=== PATIENT | female | born 1950 | race Caucasian/White ===

== ENCOUNTER 2018-04-29 06:03 | Inpatient (IN) | payer MEDICARE, OTHER ==
[2018-04-29] MEDS: ALBUTEROL 0.083% (NEB) 2.5 MG/3 ML AMP NEB (06:30)
[2018-04-29] MEDS: IPRATROPIUM (NEB) 0.5 MG/2.5 ML AMP NEB (06:30)
[2018-04-29 08:17] LABS: ADD MAN DIFF? NO
[2018-04-29 08:19] LABS: BASOPHIL # 0.1 10^3/ul (0.0-0.1); BASOPHILS % 0.3 % (0.0-2.0); HEMATOCRIT 43.4 % (37.0-47.0); HEMOGLOBIN 14.3 g/dl (12.0-16.0); LYMPHOCYTES % 5.2 % (15.0-51.0); MEAN CORPUSCULAR HEMOGLOBIN 30.8 pg (29.0-33.0); MEAN CORPUSCULAR HGB CONC 32.9 g/dl (32.0-37.0); MEAN CORPUSCULAR VOLUME 93.3 fl (82.0-101.0); MEAN PLATELET VOLUME 10.1 fl (7.4-10.4); MONOCYTE # 0.5 10^3/ul (0.3-0.9); MONOCYTES % 2.5 % (0.0-11.0); NEUTROPHIL # 17.4 10^3/ul (1.6-7.5); NEUTROPHILS % 91.5 % (39.0-77.0); PLATELET COUNT 305 10^3/UL (140-415); RED BLOOD COUNT 4.65 10^6/ul (4.20-5.40); RED CELL DISTRIBUTION WIDTH 12.7 % (11.5-14.5)
[2018-04-29] MEDS: LABETALOL HCL 20MG INJ IV ×2 (08:20→12:45)
[2018-04-29] MEDS: ONDANSETRON 4 MG INJ IV (08:21)
[2018-04-29] MEDS: METHYLPREDNISOLONE 125 MG INJ IV (08:21)
[2018-04-29] MEDS: FAMOTIDINE 20 MG INJ IV (08:22)
[2018-04-29] MEDS: morphine 2 MG INJ IV (08:22)
[2018-04-29] MEDS: SODIUM CHLORIDE 0.9% 1L BAG IV* (08:23)
[2018-04-29 08:38] LABS: INR 0.95; PROTIME 12.8 Sec (11.9-14.9)
[2018-04-29 08:39] LABS: PARTIAL THROMBOPLASTIN TIME 26.9 Sec (23.0-35.0)
[2018-04-29 08:44] LABS: ALANINE AMINOTRANSFERASE 17 IU/L (13-69); ALBUMIN 4.7 g/dl (3.3-4.9); ALBUMIN/GLOBULIN RATIO 2.04; ALKALINE PHOSPHATASE 73 IU/L (42-121); AMYLASE 68 U/L (11-123); ANION GAP 13 (5-13); ASPARTATE AMINO TRANSFERASE 27 IU/L (15-46); BILIRUBIN,INDIRECT 0.1 mg/dl (0-1.1); BILIRUBIN,TOTAL 0.1 mg/dl (0.2-1.3); BLOOD UREA NITROGEN 27 mg/dl (7-20); CALCIUM 9.4 mg/dl (8.4-10.2); CARBON DIOXIDE 29 mmol/L (21-31); CHLORIDE 103 mmol/L (97-110); CREATININE 0.97 mg/dl (0.44-1.00); Estimated GFR 57 mL/min (>60); GLUCOSE 145 mg/dl (70-220); LIPASE 26 U/L (23-300); POTASSIUM 4.5 mmol/L (3.5-5.1); SODIUM 145 mmol/L (135-144)
[2018-04-29 08:46] LABS: ETHANOL < 10.0 mg/dl
[2018-04-29 08:56] LABS: TROPONIN-I 0.014 ng/ml (0.000-0.120)
[2018-04-29 09:01] LABS: FREE THYROXINE INDEX (Calc) 2.63 ug/ml (0.65-3.89); T3 UPTAKE 32.9 % (23.5-40.5)
[2018-04-29 10:10] LABS: ADD UMIC YES; UR ASCORBIC ACID NEGATIVE (NEGATIVE); UR BACTERIA FEW /HPF (NONE SEEN); UR BILIRUBIN (Dip) NEGATIVE (NEGATIVE); UR BLOOD (Dip) NEGATIVE (NEGATIVE); UR CLARITY SLIGHTLY CLOUDY (CLEAR); UR COLOR YELLOW (YELLOW); UR GLUCOSE (Dip) NEGATIVE (NEGATIVE); UR KETONES (Dip) NEGATIVE (NEGATIVE); UR LEUKOCYTE ESTERASE (Dip) NEGATIVE Leu/ul (NEGATIVE); UR NITRITE (Dip) POSITIVE (NEGATIVE); UR RBC 0 /HPF (0-5); UR TOTAL PROTEIN (Dip) 2+ mg/dl (NEGATIVE); UR UROBILINOGEN (Dip) NEGATIVE (NEGATIVE); UR WBC 1 /HPF (0-5)
[2018-04-29] MEDS: CEFEPIME 2GM/50 ML (PMX) 50 ML IVPB (10:13)
[2018-04-29] MEDS: hydrALAzine 20 MG INJ IV ×2 (10:18→20:22)
[2018-04-29] MEDS: VANCOMYCIN 1 GM (PMX) 250 ML IVPB (10:41)
[2018-04-29] MEDS ORDERED: ACETAMINOPHEN 325 MG TAB PO (11:00)
[2018-04-29] MEDS ORDERED: ONDANSETRON 4 MG INJ IV (11:00)
[2018-04-29] MEDS: IOHEXOL 14.3 MG(I)/ML (ADULT) BTL PO (12:56)
[2018-04-29 12:59] LABS: LACTIC ACID 2.6 mmol/L (0.5-2.0)
[2018-04-29] MEDS: SOD CHLORIDE 0.9% 1,000 ML IV ×2 (13:20→18:05)
[2018-04-29] MEDS: SOD CHLORIDE 0.9% 100 ML (14:57)
[2018-04-29] MEDS: IOHEXOL 300MG/ML 150 ML BTL (14:57)
[2018-04-29] MEDS ORDERED: NACL 0.9% 3 ML SYG IV (15:00)
[2018-04-29] MEDS ORDERED: ALBUTEROL/IPRATROPIUM (NEB) 3 ML AMP HHN (15:00)
[2018-04-29] MEDS: AMLODIPINE 2.5 MG TAB PO (18:13)
[2018-04-29] MEDS: CIPROFLOXACIN 400MG/D5W 200 ML IVPB (20:17)
[2018-04-29] MEDS: metroNIDAZOLE 500 MG/NS (PMX) 100 ML IVPB (21:57)
[2018-04-30] MEDS: ONDANSETRON 4 MG INJ IV (00:07)
[2018-04-30] MEDS: metroNIDAZOLE 500 MG/NS (PMX) 100 ML IVPB ×3 (05:16→22:28)
[2018-04-30] MEDS: PANTOPRAZOLE (EC) 40 MG TAB PO (05:16)
[2018-04-30] MEDS: SOD CHLORIDE 0.9% 1,000 ML IV (05:16)
[2018-04-30] MEDS: hydrALAzine 20 MG INJ IV ×2 (05:24→23:26)
[2018-04-30 05:35] LABS: WHITE BLOOD COUNT 9.5 10^3/ul (4.8-10.8)
[2018-04-30 05:35] LABS: HEMATOCRIT 42.6 % (37.0-47.0); HEMOGLOBIN 13.6 g/dl (12.0-16.0); MEAN CORPUSCULAR HEMOGLOBIN 29.9 pg (29.0-33.0); MEAN CORPUSCULAR HGB CONC 31.9 g/dl (32.0-37.0); MEAN CORPUSCULAR VOLUME 93.6 fl (82.0-101.0); MEAN PLATELET VOLUME 10.2 fl (7.4-10.4); PLATELET COUNT 291 10^3/UL (140-415); RED BLOOD COUNT 4.55 10^6/ul (4.20-5.40); RED CELL DISTRIBUTION WIDTH 12.7 % (11.5-14.5)
[2018-04-30 05:41] LABS: ADD MAN DIFF? YES; POSITIVE DIFF @See below
[2018-04-30 06:10] LABS: HEMOGLOBIN A1C 5.3 % (0-5.9)
[2018-04-30 06:15] LABS: ALANINE AMINOTRANSFERASE 28 IU/L (13-69); ALBUMIN 3.1 g/dl (3.3-4.9); ALBUMIN/GLOBULIN RATIO 1.19; ALKALINE PHOSPHATASE 63 IU/L (42-121); ANION GAP 10 (5-13); ASPARTATE AMINO TRANSFERASE 29 IU/L (15-46); BILIRUBIN,INDIRECT 0.2 mg/dl (0-1.1); BILIRUBIN,TOTAL 0.2 mg/dl (0.2-1.3); BLOOD UREA NITROGEN 25 mg/dl (7-20); CALCIUM 8.3 mg/dl (8.4-10.2); CARBON DIOXIDE 22 mmol/L (21-31); CHLORIDE 106 mmol/L (97-110); CHOL/HDL RATIO 2.8 RATIO; CHOLESTEROL 144 mg/dl (100-200); CREATININE 0.92 mg/dl (0.44-1.00); Estimated GFR > 60 mL/min (>60); GLUCOSE 127 mg/dl (70-220); HDL CHOLESTEROL 50 mg/dl (35-98); LDL CHOLESTEROL,CALCULATED 77 mg/dl; MAGNESIUM 1.5 mg/dl (1.7-2.5); PHOSPHORUS 4.4 mg/dl (2.5-4.9); POTASSIUM 3.6 mmol/L (3.5-5.1); SODIUM 138 mmol/L (135-144); TOTAL PROTEIN 5.7 g/dl (6.1-8.1); TRIGLYCERIDES 86 mg/dl (0-149)
[2018-04-30 06:45] LABS: THYROID STIMULATING HORMONE 0.563 MIU/L (0.465-4.680)
[2018-04-30] MEDS: NICOTINE (14 MG/24 HR) PATCH TRANSDERM (08:54)
[2018-04-30] MEDS: CIPROFLOXACIN 400MG/D5W 200 ML IVPB ×2 (08:54→20:53)
[2018-04-30] MEDS: AMLODIPINE 2.5 MG TAB PO (08:54)
[2018-04-30] MEDS: ENOXAPARIN 40 MG/0.4 ML SYG SC (09:01)
[2018-04-30 09:39] LABS: ANISOCYTOSIS 1+ (0-0); BAND NEUTROPHILS #M 4.3 10^3/ul (0.0-0.6); BAND NEUTROPHILS % (M) 46 % (0-4); GIANT THROMBO% (M) 1 % (0-0); LYMPHOCYTES #M 1.5 10^3/ul (0.8-2.9); LYMPHOCYTES % (M) 16 % (15-51); MONOCYTE #M 1.2 10^3/ul (0.3-0.9); MONOCYTES % (M) 13 % (0-11); PLATELET ESTIMATE NORMAL; POIKILOCYTOSIS 1+ (0-0); POLYCHROMASIA 1+ (0-0); SEG NEUT #M 2.8 10^3/ul (1.6-7.5); SEGMENTED NEUTROPHILS (M) % 25 % (39-77); SMUDGE%M 48 % (0-0)
[2018-04-30] MEDS: LACTATED RINGER'S 1,000 ML IV ×2 (10:05→19:30)
[2018-04-30 10:13] LABS: HEPATITIS B SURFACE ANTIGEN NEGATIVE (NEGATIVE)
[2018-04-30] MEDS: GUAIFENESIN/DM 5ML CUP PO (10:15)
[2018-04-30 10:30] LABS: HEPATITIS C VIRAL ANTIBODY NEGATIVE (NEGATIVE)
[2018-04-30] MEDS: MULTIVITAMINS 10 ML, THIAMINE 100 MG, FOLIC ACID 1 MG in SOD CHLORIDE 0.9% 1,000 ML IVPB (14:06)
[2018-04-30 15:22] LABS: RAPID PLASMA REAGIN NONREACTIVE (NR)
[2018-04-30] MEDS: ACETAMINOPHEN 325 MG TAB PO (16:57)
[2018-04-30] MEDS: HYDROmorphONE 0.5 MG/0.5 ML SYG IV ×2 (18:24→23:21)
[2018-05-01] MEDS: HYDROmorphONE 0.5 MG/0.5 ML SYG IV ×5 (03:43→22:51)
[2018-05-01] MEDS: LACTATED RINGER'S 1,000 ML IV ×2 (05:30→15:30)
[2018-05-01 06:02] LABS: ADD MAN DIFF? NO
[2018-05-01 06:10] LABS: BASOPHIL # 0.1 10^3/ul (0.0-0.1); BASOPHILS % 0.9 % (0.0-2.0); EOSINOPHILS # 0.2 10^3/ul (0.0-0.5); EOSINOPHILS % 2.6 % (0.0-7.0); HEMATOCRIT 36.4 % (37.0-47.0); HEMOGLOBIN 11.7 g/dl (12.0-16.0); LYMPHOCYTES % 25.2 % (15.0-51.0); MEAN CORPUSCULAR HEMOGLOBIN 30.5 pg (29.0-33.0); MEAN CORPUSCULAR HGB CONC 32.1 g/dl (32.0-37.0); MEAN PLATELET VOLUME 10.4 fl (7.4-10.4); MONOCYTE # 0.5 10^3/ul (0.3-0.9); MONOCYTES % 6.3 % (0.0-11.0); NEUTROPHILS % 64.6 % (39.0-77.0); PLATELET COUNT 212 10^3/UL (140-415); RED BLOOD COUNT 3.83 10^6/ul (4.20-5.40); RED CELL DISTRIBUTION WIDTH 13.2 % (11.5-14.5)
[2018-05-01 06:10] LABS: WHITE BLOOD COUNT 7.8 10^3/ul (4.8-10.8)
[2018-05-01] MEDS: metroNIDAZOLE 500 MG/NS (PMX) 100 ML IVPB ×3 (06:17→22:51)
[2018-05-01] MEDS: PANTOPRAZOLE (EC) 40 MG TAB PO (06:18)
[2018-05-01 06:56] LABS: LACTIC ACID 0.9 mmol/L (0.5-2.0)
[2018-05-01 06:59] LABS: ALANINE AMINOTRANSFERASE 30 IU/L (13-69); ALBUMIN 2.7 g/dl (3.3-4.9); ALBUMIN/GLOBULIN RATIO 1.28; ALKALINE PHOSPHATASE 57 IU/L (42-121); ANION GAP 6 (5-13); ASPARTATE AMINO TRANSFERASE 26 IU/L (15-46); BLOOD UREA NITROGEN 20 mg/dl (7-20); CARBON DIOXIDE 24 mmol/L (21-31); CHLORIDE 109 mmol/L (97-110); CREATININE 0.94 mg/dl (0.44-1.00); Estimated GFR 59 mL/min (>60); GLUCOSE 75 mg/dl (70-220); LIPASE 21 U/L (23-300); POTASSIUM 3.7 mmol/L (3.5-5.1); SODIUM 139 mmol/L (135-144); TOTAL PROTEIN 4.8 g/dl (6.1-8.1)
[2018-05-01 07:10] LABS: AMYLASE < 30 U/L (11-123)
[2018-05-01] MEDS: NICOTINE (14 MG/24 HR) PATCH TRANSDERM (08:41)
[2018-05-01] MEDS: CIPROFLOXACIN 400MG/D5W 200 ML IVPB ×2 (08:41→20:12)
[2018-05-01] MEDS: MULTIVITAMINS 10 ML, THIAMINE 100 MG, FOLIC ACID 1 MG in SOD CHLORIDE 0.9% 1,000 ML IVPB (08:41)
[2018-05-01] MEDS: AMLODIPINE 2.5 MG TAB PO (08:42)
[2018-05-01] MEDS: ENOXAPARIN 40 MG/0.4 ML SYG SC (08:56)
[2018-05-01 09:03] LABS: SEGMENTED NEUTROPHILS (M) % 63 % (39-77)
[2018-05-01 09:03] LABS: BAND NEUTROPHILS % (M) 9 % (0-4); BURR CELLS 1+ (0-0); EOSINOPHILS % (M) 2 % (0-7); LYMPHOCYTES % (M) 18 % (15-51); MONOCYTES % (M) 8 % (0-11); PLATELET ESTIMATE NORMAL; POIKILOCYTOSIS 1+ (0-0); SMUDGE%M 10 % (0-0)
[2018-05-01] MEDS: ONDANSETRON 4 MG INJ IV (19:36)
[2018-05-01] MEDS: hydrALAzine 20 MG INJ IV (23:43)
[2018-05-02] MEDS: LACTATED RINGER'S 1,000 ML IV ×2 (00:11→11:30)
[2018-05-02] MEDS: ZOLPIDEM 5 MG TAB PO (02:53)
[2018-05-02 06:05] LABS: ADD MAN DIFF? NO
[2018-05-02 06:11] LABS: BASOPHIL # 0.1 10^3/ul (0.0-0.1); BASOPHILS % 0.6 % (0.0-2.0); EOSINOPHILS # 0.2 10^3/ul (0.0-0.5); EOSINOPHILS % 2.4 % (0.0-7.0); HEMATOCRIT 41.6 % (37.0-47.0); HEMOGLOBIN 13.4 g/dl (12.0-16.0); LYMPHOCYTES # 1.8 10^3/ul (0.8-2.9); LYMPHOCYTES % 17.9 % (15.0-51.0); MEAN CORPUSCULAR HEMOGLOBIN 30.9 pg (29.0-33.0); MEAN CORPUSCULAR HGB CONC 32.2 g/dl (32.0-37.0); MEAN CORPUSCULAR VOLUME 95.9 fl (82.0-101.0); MONOCYTE # 0.7 10^3/ul (0.3-0.9); MONOCYTES % 7.3 % (0.0-11.0); NEUTROPHIL # 7.3 10^3/ul (1.6-7.5); NEUTROPHILS % 71.5 % (39.0-77.0); PLATELET COUNT 218 10^3/UL (140-415); RED BLOOD COUNT 4.34 10^6/ul (4.20-5.40); RED CELL DISTRIBUTION WIDTH 12.8 % (11.5-14.5)
[2018-05-02 06:11] LABS: WHITE BLOOD COUNT 10.2 10^3/ul (4.8-10.8)
[2018-05-02] MEDS: PANTOPRAZOLE (EC) 40 MG TAB PO (06:18)
[2018-05-02] MEDS: metroNIDAZOLE 500 MG/NS (PMX) 100 ML IVPB ×2 (06:18→13:30)
[2018-05-02] MEDS: HYDROmorphONE 0.5 MG/0.5 ML SYG IV ×3 (06:18→14:54)
[2018-05-02 06:39] LABS: ALANINE AMINOTRANSFERASE 32 IU/L (13-69); ALKALINE PHOSPHATASE 54 IU/L (42-121); ANION GAP 7 (5-13); ASPARTATE AMINO TRANSFERASE 27 IU/L (15-46); BILIRUBIN,INDIRECT 0.2 mg/dl (0-1.1); BILIRUBIN,TOTAL 0.2 mg/dl (0.2-1.3); BLOOD UREA NITROGEN 12 mg/dl (7-20); CALCIUM 8.4 mg/dl (8.4-10.2); CARBON DIOXIDE 25 mmol/L (21-31); CHLORIDE 104 mmol/L (97-110); CREATININE 0.76 mg/dl (0.44-1.00); Estimated GFR > 60 mL/min (>60); GLUCOSE 99 mg/dl (70-220); LIPASE 14 U/L (23-300); POTASSIUM 3.8 mmol/L (3.5-5.1); SODIUM 136 mmol/L (135-144); TOTAL PROTEIN 5.3 g/dl (6.1-8.1)
[2018-05-02 06:42] LABS: AMYLASE < 30 U/L (11-123)
[2018-05-02 07:49] LABS: ERYTHROCYTE SEDIMENTATION RATE 8 mm/Hr (0-30)
[2018-05-02] MEDS: CIPROFLOXACIN 400MG/D5W 200 ML IVPB (08:11)
[2018-05-02] MEDS: MULTIVITAMINS 10 ML, THIAMINE 100 MG, FOLIC ACID 1 MG in SOD CHLORIDE 0.9% 1,000 ML IVPB (08:11)
[2018-05-02] MEDS: AMLODIPINE 2.5 MG TAB PO ×2 (08:13→11:55)
[2018-05-02] MEDS: NICOTINE (14 MG/24 HR) PATCH TRANSDERM (08:13)
[2018-05-02] MEDS: ENOXAPARIN 40 MG/0.4 ML SYG SC (08:21)
[2018-05-02] MEDS: hydrALAzine 20 MG INJ IV (11:56)
[2018-05-02] MEDS: ONDANSETRON 4 MG INJ IV (14:53)
[2018-05-03] MEDS ORDERED: AMLODIPINE 5 MG TAB PO (09:00)
== END 2018-05-02 16:30 | disposition home or self-care (01) | DRG 690 ==
LOC: E/R 06:03 → 6WM 10:58
DX: N39.0 Urinary tract infection, site not specified (principal); E87.0 Hyperosmolality and hypernatremia; K86.1 Other chronic pancreatitis; F10.188 Alcohol abuse with other alcohol-induced disorder; K52.9 Noninfective gastroenteritis and colitis, unspecified; Z59.0 Homelessness; I16.0 Hypertensive urgency; K70.31 Alcoholic cirrhosis of liver with ascites; E86.0 Dehydration; I10 Essential (primary) hypertension; J20.9 Acute bronchitis, unspecified; K80.20 Calculus of gallbladder without cholecystitis without obstruction; B96.20 Unspecified Escherichia coli [E. coli] as the cause of diseases classified elsewhere; F17.210 Nicotine dependence, cigarettes, uncomplicated
CPT/HCPCS: 36415; 71045; 74019; 74176; 74177; 76705; 80053; 80061; 80307; 81001; 82150; 83036; 83605; 83690; 83735; 84100; 84436; 84443; 84479; 84484; 85025; 85610; 85651; 85730; 86592; 86803; 87040; 87086; 87340; 93005; 94664; 96374; 96375; 99291-25; G0378